=== PATIENT | female | born 1975 | race Caucasian/White ===

== ENCOUNTER 2016-10-24 08:06 | Emergency (ER) | payer OTHER ==
[2016-10-24 09:42] LABS: HEMOGLOBIN 11.3 gm/dl (12.3-15.3); RED BLOOD COUNT 5.69 M/UL (4.00-5.10); WHITE BLOOD COUNT 12.1 K/UL (4.5-11.0)
[2016-10-24 09:51] LABS: BUN/CREATININE RATIO 13 (0-10)
== END 2016-10-24 13:03 | disposition home or self-care (01) ==
LOC: ER1 08:06
PROVIDERS: Emergency Medicine
DX: N39.0 Urinary tract infection, site not specified (principal); R11.2 Nausea with vomiting, unspecified; R19.7 Diarrhea, unspecified
CPT/HCPCS: 36415; 80053; 81001; 83690; 84703; 85025; 87040; 87086; 93005; 96374; 99284; J0696; J2405; J7050

== ENCOUNTER 2016-12-11 07:52 | Emergency (ER) | payer OTHER ==
[2016-12-11 08:21] LABS: HEMOGLOBIN 11.6 gm/dl (12.3-15.3); RED BLOOD COUNT 5.82 M/UL (4.00-5.10); WHITE BLOOD COUNT 11.7 K/UL (4.5-11.0)
[2016-12-11 08:43] LABS: BUN/CREATININE RATIO 11 (0-10)
== END 2016-12-11 13:42 | disposition home or self-care (01) ==
LOC: ER1 07:52
PROVIDERS: Emergency Medicine
DX: R55 Syncope and collapse (principal); R07.89 Other chest pain; R00.2 Palpitations; R20.0 Anesthesia of skin; F17.200 Nicotine dependence, unspecified, uncomplicated
CPT/HCPCS: 36415; 70450; 71010; 80053; 82550; 82553; 83874; 84484; 85025; 85379; 93005; 96374; 96375; 99285; J2270; J2405

== ENCOUNTER 2016-12-13 21:17 | Emergency (ER) | payer OTHER ==
[2016-12-13 21:49] LABS: HEMOGLOBIN 11.7 gm/dl (12.3-15.3); RED BLOOD COUNT 5.81 M/UL (4.00-5.10)
[2016-12-13 21:51] LABS: WHITE BLOOD COUNT 14.7 K/UL (4.5-11.0)
[2016-12-13 21:59] LABS: BUN/CREATININE RATIO 12 (0-10)
== END 2016-12-14 03:40 | disposition home or self-care (01) ==
LOC: ER1 21:17
PROVIDERS: Family Medicine
DX: R07.89 Other chest pain (principal); F17.210 Nicotine dependence, cigarettes, uncomplicated
CPT/HCPCS: 36415; 71020; 80053; 82550; 82553; 83874; 84484; 84703; 85025; 93005; 99285